=== PATIENT | female | born 1945 | race Caucasian/White ===

== ENCOUNTER → 2024-01-02 09:33 | Day surgery (SDC) | payer MEDICARE, OTHER, SELFPAY ==
[2023-12-30 10:47] VITALS: BMI 28.3
[2024-01-02 10:09] VITALS: BMI 28.3
== END ==
LOC: CATH 09:33
PROVIDERS: ATTENDING PHYSICIAN Internal Medicine; FAMILY PHYSICIAN Family Medicine; OTHER PHYSICIAN Internal Medicine Cardiovascular Disease
DX: I48.19 Other persistent atrial fibrillation (principal); I48.4 Atypical atrial flutter; I10 Essential (primary) hypertension; E78.5 Hyperlipidemia, unspecified; G47.33 Obstructive sleep apnea (adult) (pediatric); C81.90 Hodgkin lymphoma, unspecified, unspecified site; Z85.038 Personal history of other malignant neoplasm of large intestine; Z79.01 Long term (current) use of anticoagulants
CPT/HCPCS: 92960; 93005

== ENCOUNTER 2024-06-04 12:58 | Emergency (ER) | payer MEDICARE, OTHER, SELFPAY ==
[2024-06-04] VITALS (12 sets, daily range): BP systolic 85–127; BP diastolic 47–106; BMI 29.2
[2024-06-04 13:29] LABS: % Basophils 0.8 % (0-2); % Eosinophils 1.9 % (0-6); % Immature Granulocytes 0.4 % (0-0.5); % Monocytes 9.6 % (1.7-9.3); % Neutrophils 64.3 % (42.2-75.2); Absolute Basophils 0.1 10^3/uL (0-0.2); Absolute Eosinophils 0.2 10^3/uL (0-0.7); Absolute Immature Granulocytes 0.1 10^3/uL (0-0.05); Absolute Lymphocytes 2.6 10^3/uL (1.2-3.4); Absolute Monocytes 1.1 10^3/uL (0.1-0.6); Absolute Neutrophils 7.2 10^3/uL (1.4-6.5); Hematocrit 40.6 % (37.0-47.0); Hemoglobin 13.9 g/dL (12.0-16.0); Mean Corp Hgb Conc. 34.2 g/dL (33.0-37.0); Mean Corpuscular Hgb 30.3 pg (27.0-31.0); Mean Corpuscular Volume 88.6 fL (81.0-99.0); Mean Platelet Volume 9.4 fL (7.4-10.4); Nucleated Red Blood Cells % 0 %; Platelet Count 362 10^3/uL (130-400); Red Blood Cell Count 4.58 10^6/uL (4.20-5.40); Red Cell Dist. Width 14.1 % (11.5-14.5); White Blood Cell Count 11.2 10^3/uL (4.8-10.8)
[2024-06-04 13:42] LABS: ALT (SGPT) 24 U/L (0-35); AST (SGOT) 26 U/L (14-36); Albumin 4.2 g/dl (3.5-5.0); Alkaline Phosphatase 81 U/L (38-126); Blood Urea Nitrogen 20 mg/dl (7-17); Calcium 9.6 mg/dl (8.4-10.2); Carbon Dioxide 22 mmol/L (22-30); Chloride 107 mmol/L (98-107); Glucose 115 mg/dl (70-99); Potassium 4.7 mmol/L (3.5-5.1); Sodium 139 mmol/L (135-145); Total Bilirubin 0.6 mg/dl (0.2-1.3); Total Protein 7.6 g/dl (6.3-8.2); eGFR > 60.00
--- NOTE | 2024-06-04 18:18 | ED.GENMED ---
History of Present Illness
General
Chief Complaint: Heart Rate Problem
Source: patient
Time Seen by Provider: 06/04/24 17:03
History of Present Illness
History of Present Illness:
78-year-old female presents to the emergency room complaining of palpitations, shortness of breath and some mild chest discomfort. Patient began experiencing symptoms early this morning and they have continued. She has a history of atrial
fibrillation and atrial flutter. She has had 3 ablations and multiple cardioversions. She does take Eliquis. She has been compliant and has not missed any doses of the past couple weeks. She is known to Dr. Fuentes. Her last cardioversion was
about 6 or 7 months ago.
Past History
Past History
ED Past Medical History: Arrthythmia (Atrial fibrillation) and Cancer (Colon cancer/hodgkins)
ED Past Surgical History: Orthopedic and Other (Mohs procedures, splenectomy in 1972)
Social History
Tobacco: Former smoker
Alcohol: Occasional
Drug: None
Phy Exam
Physical Exam
Physical Exam:
General: Awake, Alert, Oriented X3. No acute distress.
Vitals: Tachycardic
Head: Atraumatic
Eyes: Pupils equal, EOMI
Throat: Airway intact, no exudates. Mallampati score of 1
Neck: Trachea midline
Lungs: Clear and equal b/l
Heart: Regular rate, no murmurs
Abd: Soft, Nontender, No pulsatile mass
Neuro: Nonfocal
Skin: Warm, dry, no rash
Extremities: pulses equal b/l, no edema
Course
Orders/Labs/Results
Orders:
Orders
06/04/24 13:02
Electrocardiogram (*1) Urgent
Reason for Study: Palpitations
06/04/24 13:03
EKG- Treatment ONCE
06/04/24 13:20
Complete Blood Count/With Diff Urgent
Comprehensive Metabolic Panel Urgent
06/04/24 17:57
Propofol [Diprivan] 20 ml .ROUTE .STK-MED
06/04/24 18:02
EKG [Electrocardiogram (*1)] Stat
Reason for Study: Atrial Fibrillation
EKG- Treatment ONCE
Abnormal Lab Results
06/04/24
13:20
WBC 11.2 H 10^3/uL
(4.8-10.8)
Abs Immat Gran (auto) 0.1 H 10^3/uL
(0-0.05)
Absolute Neuts (auto) 7.2 H 10^3/uL
(1.4-6.5)
Absolute Monos (auto) 1.1 H 10^3/uL
(0.1-0.6)
Monocytes % 9.6 H %
(1.7-9.3)
BUN 20 H mg/dl
(7-17)
Glucose 115 H mg/dl
(70-99)
06/04/24 13:20
06/04/24 13:20
Vital Signs
Initial and Last Documented VS:
Initial Vital Signs
Temp Pulse Resp BP Pulse Ox
97.3 F 114 18 115/77 96
06/04/24 13:00 06/04/24 13:00 06/04/24 13:00 06/04/24 13:00 06/04/24 13:00
Last Documented Vital Signs
Temp Pulse Resp BP Pulse Ox
97.7 F 62 18 94/55 96
06/04/24 18:45 06/04/24 18:45 06/04/24 18:45 06/04/24 18:45 06/04/24 18:45
Procedures
Moderate Sedation
Moderate Sedation Start Time(when first medication is given): 18:05
Moderate Sedation Procedure End Time: 18:15
Cardioversion
Indication:: Afib
Synchronized?: Yes
Energy Used: 200 joules
Successful?: Yes
ASA Risk Score: Class II
Any reaction or bad outcome to prior sedation/anesthesia?: No history of a reaction
Sedation level to be attained: moderate
Chart and allergies reviewed: Yes
Patient reassessed prior to sedation: Yes
Time out completed at (validating right patient & procedure): 18:05
History of difficult intubation: No
Airway free of obstruction: Yes
Patient has a gag reflex: Yes
Patient is able to open mouth: Yes
Patient has no dentures: Yes
Patient has no loose teeth: Yes
Medication administered by Provider during Moderate Sedation: IV Propofol (mg)
Total dose administered: 50
Time drug administered: 18:05
Start Time: 18:05
Stop Time: 18:16
MDM/Problems Addressed
Differential Diagnosis Includes:
Paroxysmal atrial fibrillation, atrial flutter, frequent PACs
MDM/Problems Addressed:
Patient presents with palpations, dizziness mild chest discomfort. She is found to be in atrial fibrillation. Labs remarkable. She has been taking her oral anticoagulant, Eliquis, uninterrupted for quite some time and she sure she has not missed
any doses in the past couple weeks. Therefore decision made to proceed with cardioversion. Patient tolerated sedation well. She was converted to sinus rhythm after 1 shock. After sedation she was feeling much better. She was able to ambulate
without difficulty.
Repeat EKG is sinus rhythm at 68. No ischemic changes.
Chronic conditions affecting care: Arrhythmia (Paroxysmal atrial fibrillation)
*Pulse Oximetry
Patient hypoxic: no
*EKG
Interpreted by ED Provider?: Yes
Heart Rate: 104
Rate: tachycardiac
Rhythm: other (Atrial tachycardia)
Slinger: normal axis
Interval: normal interval
QRS Pattern: normal QRS
Ischemia: non-specific ST changes
*Gas Dispenser Interpretation
Rate: tachycardiac
Interpretation: abnormal
Rhythm: a-fib
*Critical Care Note
Total Time (30-74mins, 75-104mins- exclusive of procedures): Not Applicable
ED Attending Note
-
Portions of this chart may have been created with voice recognition software.� Occasional wrong word or��sound alike� substitutions may have occurred due to the inherent limitations of voice recognition software.
Discharge Plan
Departure
Patient Disposition: Home (Routine Discharge)
Date of Disposition: 06/04/24
Time of Disposition: 18:55
Patient with high blood pressure during this ER visit?: No
Condition: Good
Discharge Problem:
Atrial fibrillation with RVR
Instructions: Atrial Fibrillation (DC), Sedation for procedures in adults - Discharge instructions
Prescriptions:
No Action
Eliquis 5 MG tablet
5 mg PO BID
ascorbic acid (vitamin C) [Vitamin C] 1,000 MG tablet
1,000 mg PO BID
sotalol 80 mg tablet
80 mg PO BID Qty: 60 3RF
PreserVision AREDS-2 250-90-40-1 mg Capsule
1 tab PO BID
cholecalciferol (vitamin D3) [Vitamin D3] 125 mcg (5,000 unit) Tablet
250 mcg PO DAILY
Triple Magnesium Complex 400 mg magnesium Capsule
1 mg PO DAILY
garlic extract
1 tab PO DAILY
Referrals:
Deja Narayan MD [Active] -
Lana Brady MD [Family Provider] -
Activity Restrictions/Additional Instructions:
Call Dr. Narayan's office in the morning for a follow up appointment.
Interventions
Interventions:
*Risk Screen - Suicide Last Done: 06/04/24 13:02
*General Assessment Last Done: 06/04/24 13:02
*Neglect/Abuse Screening Last Done: 06/04/24 13:02
*ED- Fall Risk Assessment Last Done: 06/04/24 17:20
*ED COVID-19 Vaccine History Last Done: 06/04/24 13:02
*Nursing Disposition Last Done: 06/04/24 19:17
ED- Pulmonary Assessment Last Done: 06/04/24 17:21
ED- Cardiac Assessment Last Done: 06/04/24 17:17
Discharge Date and Time
Discharge Date/Time: 06/04/24 19:22
Print Language: ROMANIAN
== END 2024-06-04 19:22 | disposition home or self-care (01) ==
LOC: EMR 12:58
PROVIDERS: Emergency Medicine; EMERGENCY PHYSICIAN Emergency Medicine; FAMILY PHYSICIAN Family Medicine
DX: I48.91 Unspecified atrial fibrillation (principal); R06.02 Shortness of breath; R07.89 Other chest pain; I48.92 Unspecified atrial flutter; Z79.01 Long term (current) use of anticoagulants; Z85.71 Personal history of Hodgkin lymphoma; Z85.038 Personal history of other malignant neoplasm of large intestine; Z87.891 Personal history of nicotine dependence
CPT/HCPCS: 92960; 99285; 99152; 80053; 85025; 93005

== ENCOUNTER 2024-06-21 14:47 | Emergency (ER) | payer MEDICARE, OTHER, SELFPAY ==
[2024-06-21] VITALS (16 sets, daily range): BP systolic 92–135; BP diastolic 36–112
[2024-06-21 15:27] LABS: % Basophils 0.7 % (0-2); % Eosinophils 1.5 % (0-6); % Immature Granulocytes 0.4 % (0-0.5); % Lymphocytes 23.1 % (20.5-51.1); % Monocytes 10.1 % (1.7-9.3); % Neutrophils 64.2 % (42.2-75.2); Absolute Basophils 0.1 10^3/uL (0-0.2); Absolute Eosinophils 0.2 10^3/uL (0-0.7); Absolute Lymphocytes 2.5 10^3/uL (1.2-3.4); Absolute Monocytes 1.1 10^3/uL (0.1-0.6); Hemoglobin 12.8 g/dL (12.0-16.0); Mean Corp Hgb Conc. 33.7 g/dL (33.0-37.0); Mean Corpuscular Hgb 30.1 pg (27.0-31.0); Mean Corpuscular Volume 89.4 fL (81.0-99.0); Mean Platelet Volume 9.9 fL (7.4-10.4); Nucleated Red Blood Cells % 0 %; Platelet Count 341 10^3/uL (130-400); Red Blood Cell Count 4.25 10^6/uL (4.20-5.40); Red Cell Dist. Width 14.3 % (11.5-14.5)
[2024-06-21 15:35] LABS: ALT (SGPT) 30 U/L (0-35); AST (SGOT) 32 U/L (14-36); Albumin 4.2 g/dl (3.5-5.0); Alkaline Phosphatase 78 U/L (38-126); Blood Urea Nitrogen 17 mg/dl (7-17); Calcium 9.2 mg/dl (8.4-10.2); Carbon Dioxide 24 mmol/L (22-30); Chloride 110 mmol/L (98-107); Glucose 103 mg/dl (70-99); Potassium 4.6 mmol/L (3.5-5.1); Sodium 138 mmol/L (135-145); Total Bilirubin 0.6 mg/dl (0.2-1.3); Total Protein 7.6 g/dl (6.3-8.2); eGFR > 60.00
[2024-06-21 15:45] LABS: Troponin I < 0.012 ng/ml
--- NOTE | 2024-06-21 19:53 | ED.GENMED ---
History of Present Illness
General
Chief Complaint: Chest Pain
Source: patient
Exam Limitations: none
Time Seen by Provider: 06/21/24 19:41
History of Present Illness
History of Present Illness:
See MDM
Past History
Past History
ED Past Medical History: Arrthythmia (Atrial fibrillation) and Cancer (Colon cancer/hodgkins)
ED Past Surgical History: Orthopedic and Other (Mohs procedures, splenectomy in 1972)
Social History
Tobacco: Former smoker
Alcohol: Occasional
Drug: None
Phy Exam
Physical Exam
Physical Exam:
See MDM
Scores
Heart Score for Chest Pain Patients
STEMI patient?: No
History: Slightly or Non-Suspicious
ECG: Nonspecific Repolarization
Age: >/= 65 years
Risk Factors: 1 or 2 Risk Factors
Troponin: </= Normal Limit
Heart Score for Chest Pain Patients: 4
Heart Score Risk: 20.3% MACE over next 6 weeks
Course
Orders/Labs/Results
Orders:
Orders
06/21/24 14:48
EKG [Electrocardiogram (*1)] Urgent
Reason for Study: Chest Pain
06/21/24 14:49
EKG- Treatment ONCE
06/21/24 15:14
Complete Blood Count/With Diff Urgent
Comprehensive Metabolic Panel Urgent
Troponin I Urgent
06/21/24 20:20
Propofol [Diprivan] 20 ml .ROUTE .STK-MED
06/21/24 20:30
Electrocardiogram (*1) Stat
Reason for Study: Abnormal EKG
EKG- Treatment ONCE
Abnormal Lab Results
06/21/24
15:14
WBC 11.0 H 10^3/uL
(4.8-10.8)
Absolute Neuts (auto) 7.0 H 10^3/uL
(1.4-6.5)
Absolute Monos (auto) 1.1 H 10^3/uL
(0.1-0.6)
Monocytes % 10.1 H %
(1.7-9.3)
Chloride 110 H mmol/L
(98-107)
Glucose 103 H mg/dl
(70-99)
06/21/24 15:14
06/21/24 15:14
Vital Signs
Initial and Last Documented VS:
Initial Vital Signs
Temp Pulse Resp BP Pulse Ox
97.5 F 126 20 121/89 97
06/21/24 14:59 06/21/24 14:59 06/21/24 14:59 06/21/24 14:59 06/21/24 14:59
Last Documented Vital Signs
Temp Pulse Resp BP Pulse Ox
97.5 F 65 16 106/52 97
06/21/24 20:27 06/21/24 20:40 06/21/24 20:40 06/21/24 20:40 06/21/24 20:40
Procedures
Moderate Sedation
ASA Risk Score: Class II
Chart and allergies reviewed: Yes
Consent for anesthesia obtained: Yes
Time out completed (validating right patient & procedure): Yes
Moderate Sedation Start Time(when first medication is given): 20:27
History of difficult intubation: No
Airway free of obstruction: Yes
Patient has a gag reflex: Yes
Patient is able to open mouth: Yes
Patient has no dentures: Yes
Patient has no loose teeth: Yes
Medication administered by Provider during Moderate Sedation: IV Propofol (mg)
Total dose administered: 50
Time drug administered: 20:27
Moderate Sedation Procedure End Time: 20:40
Cardioversion
Indication:: Afib
Performed by:: Maximiliano Woods, DO
Synchronized?: Yes
Energy Used: 150 joules
Number of attempts: 1
Successful?: Yes
Complications: None
ASA Risk Score: Class II
Any reaction or bad outcome to prior sedation/anesthesia?: No history of a reaction
Sedation level to be attained: moderate
Chart and allergies reviewed: Yes
Patient reassessed prior to sedation: Yes
Time out completed at (validating right patient & procedure): 20:25
History of difficult intubation: No
Airway free of obstruction: Yes
Patient has a gag reflex: Yes
Patient is able to open mouth: Yes
Patient has no dentures: Yes
Patient has no loose teeth: Yes
Medication administered by Provider during Moderate Sedation: IV Propofol (mg)
Total dose administered: 50
Time drug administered: 20:27
Start Time: 20:27
Stop Time: 20:40
MDM/Problems Addressed
Differential Diagnosis Includes:
HPI and MDM Narrative:
78-year-old female presenting to the emergency department with recurrent A-fib. Patient states she felt her heart rate racing earlier today. Patient is concerned she is back in A-fib. She was here 3 weeks ago with similar issues requiring
cardioversion. Patient states has been cardioverted about 8 times and has had 3 ablations. She is post to follow-up with her loft patternmaker next week. She claims compliance with Eliquis and her sotalol.
Given that this would be her ninth cardioversion, discussed with patient that I will go over her case with on-call cardiology
Physical exam
General: Well appearing and non-toxic
HEENT: protecting airway
Neck: appears supple
CV: No evidence of cyanosis. Tachycardic and irregular
Resp: No accessory muscle use
Abd: Non-distended
Extremities: No deformities
Neuro: alert
Psych: Normal affect
Skin: Intact
Problems Addressed including Acute and Chronic Conditions affecting care:
1. Recurrent A-fib
Acuity: acute
Prognosis: unstable
Details: Patient comfortable with cardioversion
Updates
Case discussed with cardiology who suggested cardioversion and having her follow-up with her loft patternmaker
Patient tolerated sedation and cardioversion well and is back in sinus rhythm
Differential Diagnosis (but not limited to): A-fib, dehydration, ACS
Testing considered: 2 troponin rule out
Drug therapy (if applicable): OTC meds, please see d/c instruction regarding Rx drugs
Amount and/or Complexity of Data Reviewed
Clinical info obtained from: Patient
External data reviewed: N/A
Labs I independently reviewed (but not limited to): troponin normal
Radiology: N/A
Pulse Ox: not hypoxic
EKG independently reviewed: A-fib with RVR, normal axis, no STEMI
Critical Care Educator: A-fib
Critical Care: N/A
Risk of Complication:
Social Determinants of health: Good social support
Discussed with other providers: Cardiology
Escalation of Care includes Admit/Obs: After being observed in the Emergency Department, pt stable for discharge.
Occasional wrong word or 'sound a like' substitutions may have occurred due to the inherent limitations of voice recognition software. Read the chart carefully and recognize, using context, where substitutions have occurred.
*Critical Care Note
Total Time (30-74mins, 75-104mins- exclusive of procedures): Not Applicable
ED Attending Note
-
Portions of this chart may have been created with voice recognition software.� Occasional wrong word or��sound alike� substitutions may have occurred due to the inherent limitations of voice recognition software.
Discharge Plan
Departure
Patient Disposition: Home (Routine Discharge)
Date of Disposition: 06/21/24
Time of Disposition: 20:45
Patient with high blood pressure during this ER visit?: No
Discharge Problem:
A-fib
Instructions: Atrial fibrillation, MODERATE SEDATION ADULT
Prescriptions:
No Action
Eliquis 5 MG tablet
5 mg PO BID
ascorbic acid (vitamin C) [Vitamin C] 1,000 MG tablet
1,000 mg PO BID
sotalol 80 mg tablet
80 mg PO BID Qty: 60 3RF
PreserVision AREDS-2 250-90-40-1 mg Capsule
1 tab PO BID
cholecalciferol (vitamin D3) [Vitamin D3] 125 mcg (5,000 unit) Tablet
250 mcg PO DAILY
Triple Magnesium Complex 400 mg magnesium Capsule
1 mg PO DAILY
garlic extract
1 tab PO DAILY
Referrals:
Lana Brady MD [Family Provider] -
Activity Restrictions/Additional Instructions:
Please return for any worsening symptoms.
You may return at any time if you have further concerns.
Please follow up with your doctor at the first available appointment, preferably this week.
I spoke to the on-call loft patternmaker Dr. Jacome. He suggested calling the cardiology office and trying to get Dr. Narayan to see you sooner.
Thank you for choosing [facility].
Interventions
Interventions:
*Risk Screen - Suicide Last Done: 06/21/24 14:59
*General Assessment Last Done: 06/21/24 14:59
ED- Cardiac Assessment Last Done: 06/21/24 18:22
Discharge Date and Time
Print Language: POLISH
== END 2024-06-21 21:25 | disposition home or self-care (01) ==
LOC: EMR 14:47
PROVIDERS: Emergency Medicine; EMERGENCY PHYSICIAN Student in an Organized Health Care Education/Training Program; FAMILY PHYSICIAN Family Medicine
DX: I48.91 Unspecified atrial fibrillation (principal); Z85.71 Personal history of Hodgkin lymphoma; Z85.038 Personal history of other malignant neoplasm of large intestine; Z87.891 Personal history of nicotine dependence
CPT/HCPCS: 99152; 99285; 92960; 80053; 84484; 85025; 93005

== ENCOUNTER 2024-07-23 09:05 | Inpatient (IN) | payer MEDICARE, OTHER, SELFPAY ==
[2024-07-23 09:32] VITALS: BMI 27.7
[2024-07-23 09:41] VITALS: BP 96/67
--- NOTE | 2024-07-23 10:07 | W.PN.CD ---
Today's Communication / Plan
-
*THIS IS THE SUMMARY. PLEASE SEE SCANNED H&P*
Await BMP. Dofetilide loading per protocol.
Impression / Plan
-
I/P: 78F with persistent atrial fibrillation (on apixaban, with prior extensive ablations) and Mobitz type I (Wenckebach atrioventricular block), and mild to moderate mitral regurgitation who presents for dofetilide loading.
Outpatient racking machine operator: Dr. Narayan
Paroxysmal atrial fibrillation
- She stopped sotalol 3 days prior to admission as it was not effectively controlling her arrhythmia
- She had extensive ablations in the past, ablation lines intact during following ablation, new areas generating atrial fibrillation.
- BMP pending. EKG pending. Place on telemetry. Initiation of dofetilide per protocol.
- If dofetilide is ineffective consider ablation versus ablate and pace with AZURE ARCHITECT-P and AVJ
- Oral anticoagulation: Apixaban 5 mg twice daily, she denies missed doses and abnormal bleeding
Atypical atrial flutter, S/P ablation
Mitral regurgitation, mild to moderate by TTE 2022
Physical Exam
Vital Signs/Labs
Vital Signs
Temp Pulse Resp BP Pulse Ox
98.2 F 130 16 96/67 97
07/23/24 09:59 07/23/24 09:45 07/23/24 09:59 07/23/24 09:41 07/23/24 09:59
07/22/24 07/23/24 07/24/24
06:59 06:59 06:59
Actual Weight 82.7 kg
Physical Exam
Constitutional: No acute distress and Comfortable
EENT: Anicteric and Moist mucous membranes
Cardiovascular: Rhythm & rate is regular (tachycardia) and S1S2 is normal
Respiratory: Respiratory effort normal and Lungs clear to auscul.
GI: Soft, Distention absent, Flat, Non tender and Normal bowel sounds
Neuro/Psych: AO x 3
Other: Skin (warm and dry)
Data Reviewed
-
Date of Service: July 23, 2024
EKG: Ordered by me
Medical Tests (PFT, Pathology etc): Report Reviewed by me
Labs: Labs Ordered by me
Old Records: Reviewed
[2024-07-23 10:30] VITALS: BMI 27.7
[2024-07-23 11:19] LABS: Blood Urea Nitrogen 17 mg/dl (7-17); Calcium 9.3 mg/dl (8.4-10.2); Carbon Dioxide 24 mmol/L (22-30); Chloride 108 mmol/L (98-107); Estimated Creatinine Clearance 78 ml/min; Glucose 92 mg/dl (70-99); Potassium 4.1 mmol/L (3.5-5.1); Sodium 138 mmol/L (135-145); eGFR > 60.00
[2024-07-23 11:21] VITALS: BP 145/83
--- NOTE | 2024-07-23 11:40 | W.CARD.TIKOS ---
Addendum entered and electronically signed by Deja Narayan MD 07/24/24 09:39:
I returned patient personally. I reviewed blood work, labs, EKG and plan to start patient on dofetilide 500 mcg every 12 hours.
Original Note:
Initiate Tikosyn
-
I verify that the patient has not taken any verapamil (Isoptin/Calan), ketoconazole (Nizoral), cimetidine (Tagamet), trimethoprim (Trimpex), trimethoprim/sulfamethoxazole (Bactrim), megesterol (Megace), prochlorperazine (Compazine),
hydrochlorothiazide (HCTZ), dolutegravir (Tivicay) or any Class I or Class III anti-arrhythmic within the last three days
AND
I verify that the patient has not taken amiodarone within the last THREE months, or that the patient's amiodarone plasma concentration is <0.3 mcg/mL.
Creatinine 0.6 mg/dL (0.6-1.0) 07/23/24 10:21
Estimated Creat Clear 78 ml/min 07/23/24 10:21
I have assessed the baseline QTc interval (using QT for heart rate less than 60 bpm) and deemed the patient is appropriate for Dofetilide therapy. I understand that Tikosyn is contraindicated if the QTc is >440msec (500msec in patients with
ventricular conduction abnormalities).
Baseline QTc (in msec): 440
Ordering Physician: Deja Narayan
[2024-07-23] MEDS: TIKOSYN 500 MCG PO ×2 (11:53→23:00)
--- NOTE | 2024-07-23 12:29 | PTCARENOTE ---
Rec'd Pt as direct admit for Tikosyn loading, A,A+Ox3, denies pain. In A-fib on monitor. New IV started in L forearm, BMP sent. EKG done, VSS. Pt weighed. First dose of Tikosyn given around 1150.
--- NOTE | 2024-07-23 15:16 | CM ---
Reviewed chart. Met with Mrs. Tee to review discharge plans. She states prior to admission she resides with her spouse in an apartment in [facility]. She states has has been there for six years. She states prior to
admission she was independent with ambulation and adls. She states she has a CPAP Machine at home and no other DME in the home. She states her prescription plan is with [employer] and she uses their mail order pharmacy. Will need to send a script for
three days of Dofetilide to the [facility] to go home with her. Will check coverage and co-pay tomorrow. Will check if [facility] has Dofetilide in stock. Medical work-up in progress. The discharge plan is to return home with her spouse
when medically stable.
[2024-07-23 15:32] VITALS: BP 130/84
[2024-07-23 18:48] VITALS: BP 108/62
[2024-07-23] MEDS: VITAMIN C 1000 MG PO (20:55)
[2024-07-23] MEDS: ELIQUIS 5 MG PO (20:55)
[2024-07-23] MEDS: OCUVITE SOFTGEL 1 CAP PO (20:55)
[2024-07-23 23:00] VITALS: BP 134/65
--- NOTE | 2024-07-23 23:28 | PTCARENOTE ---
Assumed care of the pt @ 1900. Pt is AAOx3 A fib on the monitor 115-135 VSS 2 nd Tikosyn dose given @ 2300 EKG due @ 0100. Pt is independent in the room call ha within reach.
[2024-07-24] VITALS (12 sets, daily range): BP systolic 88–140; BP diastolic 68–90; BMI 27.2
[2024-07-24] MEDS: MAGNESIUM OXIDE 500 MG PO (08:39)
[2024-07-24] MEDS: VITAMIN C 1000 MG PO ×2 (08:39→19:56)
[2024-07-24] MEDS: ELIQUIS 5 MG PO ×2 (08:39→19:55)
[2024-07-24] MEDS: VITAMIN D3 (cholecalciferol) 250 MCG PO (08:39)
[2024-07-24] MEDS: OCUVITE SOFTGEL 1 CAP PO ×2 (08:39→19:56)
--- NOTE | 2024-07-24 08:52 | PTCARENOTE ---
Assumed care. Patient returning from the bathroom. HR 130-140's, denies pain or shortness of breath, BP 110/84 left arm, POX 95% on room air. Sitting on side of bed, meds given whole with water, ordering breakfast, call ha in reach
--- NOTE | 2024-07-24 09:39 | W.PN.CD ---
Today's Communication / Plan
-
- Tikosyn reduced to 250 mcg Q12h
- Add Metoprolol
- NPO after midnight for possible DCCV in AM
Impression / Plan
-
I/P: 78F with persistent atrial fibrillation (on apixaban, with prior extensive ablations) and Mobitz type I (Wenckebach atrioventricular block), and mild to moderate mitral regurgitation who presents for dofetilide loading.
Outpatient websphere administrator: Dr. Narayan
Paroxysmal atrial fibrillation
- Off the sotalol 3 days prior to admission as it was not effectively controlling her arrhythmia
- She had extensive ablations in the past, ablation lines intact during following ablation, new areas generating atrial fibrillation.
- now on Tikosyn - QTc is long - may be due to AT and P wave in T wave. Will reduce dose to 250 mcg q12h today
- If dofetilide is ineffective consider ablation versus ablate and pace with STAGE BUILDER-P and AVJ
- Oral anticoagulation: Apixaban 5 mg twice daily, she denies missed doses and abnormal bleeding
- Presented in atrial tachycardia - 130s bpm - rate control with Metoprolol now
- If still in AT in AM, will proceed with cardioversion.
Atrial tachycardia
- Start Metoprolol 50 mg BID
- Continue Tikosyn
Atypical atrial flutter, S/P ablation
Mitral regurgitation, mild to moderate by TTE 2022
Physical Exam
Vital Signs/Labs
Vital Signs
Temp Pulse Resp BP Pulse Ox
97.3 F 136 18 110/84 97
07/24/24 08:25 07/24/24 09:15 07/24/24 08:25 07/24/24 07:59 07/24/24 08:25
07/23/24 07/24/24 07/25/24
06:59 06:59 06:59
Actual Weight 82.7 kg 81.1 kg
07/23/24 10:21
Physical Exam
Constitutional: No acute distress and Comfortable
EENT: Anicteric and Moist mucous membranes
Cardiovascular: Rhythm & rate is regular, Pedal edema is absent and JVD pressure is normal
Respiratory: Respiratory effort normal, Lungs clear to auscul. and Wheeze Absent
GI: Soft, Distention absent and Normal bowel sounds
Neuro/Psych: Alert, Oriented and AO x 3
Data Reviewed
-
Date of Service: July 24, 2024
Medical Decision Making: Reviewed Test Results, Test Interpretation and Review of Case with other Provider
EKG: Tracing Personally Visualized and interpreted
Echo: Report Reviewed by me
Medical Tests (PFT, Pathology etc): Discussed with Patient
Labs: Labs Reviewed by me
Old Records: Reviewed
[2024-07-24] MEDS: TOPROL XL 25 MG PO ×2 (10:21→19:55)
[2024-07-24] MEDS: TIKOSYN 250 MCG PO ×2 (10:21→21:25)
--- NOTE | 2024-07-24 11:32 | CM ---
Reviewed chart. Telephone call to [employer], ([phone]) to check on co-pay for Dofeitilde 500 mcg. Her co-pay would be $37.24 for one month and $111.43 for a 90 day supply via [facility]. Reviewed co-pay with her. She is agreeable to
the co-pay. Telephone call to [facility] to see if they have Dofetilide 500 mcg in stock. They have it in stock. Will need to check if they have Dofetilide 250 mcg in stock. Sherin will need a three script of Dofetilide to go to [facility] so
she can take e three day supply home with her. Prior to admission she resides in an apartment at [facility]. They have been there for six tears. Prior to admission she was independent with ambulation and adls. She has a CPAP
Machine at home and no other DME. She has a prescription plan with [employer] and uses [facility] mail order pharmacy and [facility] when needed. Medical work-up in progress. The discharge plan is to return home with her spouse when medically
stable.
--- NOTE | 2024-07-24 18:00 | PTCARENOTE ---
received patient , patient eating dinner, voices no concerns at this time. I agree with previous assessment.
--- NOTE | 2024-07-24 20:40 | PTCARENOTE ---
Rec'd pt at change of shift. Pt AAO*3, VSS, and Atrial tachycardia on monitor. Pt denies any pain or discomfort. Updated on plan of care and 4th tikosen dose at 21:00. Pt NPO after midnight for possible DCCV. Pt verbalizes understanding and now
resting with call ha in reach. See MAR and flowchart for full pt care and assessment.
[2024-07-25 03:00] VITALS: BP 108/56
[2024-07-25 03:01] VITALS: BP 108/56
--- NOTE | 2024-07-25 04:20 | DOWNTIME ---
Addendum entered and electronically signed by Mikey Butts RN 07/25/24 14:26:
Correction: Downtime was 07/25/2024 from 0100 to 07/25/2024 at 0415
Original Note:
There was a [employer] Client Shaft Repairer Downtime on 07/24/2024 from 0100 to 07/25/2024 at 0415. Downtime documentation of patient's care, including medication administrations, has been reconciled in the electronic record per guidelines. Refer to the
patient's paper chart under the miscellaneous tab to see printed paper medication records and downtime forms.
[2024-07-25 04:51] VITALS: BMI 27.7
--- NOTE | 2024-07-25 04:53 | PTCARENOTE ---
Pt noted to converted to SR at 2:10. SR confirmed with EKG and HR now regular in the 70-80's. Pt BP stable at 108/56. Pt resting with call ha in reach and plan of care ongoing.
--- NOTE | 2024-07-25 08:01 | W.PN.CD ---
Today's Communication / Plan
-
- EKG after 5th dose this AM
- Posible discahrge home today
Impression / Plan
-
I/P: 78F with persistent atrial fibrillation (on apixaban, with prior extensive ablations) and Mobitz type I (Wenckebach atrioventricular block), and mild to moderate mitral regurgitation who presents for dofetilide loading.
Outpatient core sticker: Dr. Narayan
Paroxysmal atrial fibrillation
- Off the sotalol 3 days prior to admission as it was not effectively controlling her arrhythmia
- She had extensive ablations in the past, ablation lines intact during following ablation, new areas generating atrial fibrillation.
- now on Tikosyn - 250 mcg q12h. QTc was long at 500 dose- may be due to AT and P wave in T wave.
- Sinus now - QTc is normal.
- If dofetilide is ineffective consider ablation versus ablate and pace with [facility] [employer]-P and AVJ
- Oral anticoagulation: Apixaban 5 mg twice daily, she denies missed doses and abnormal bleeding
- Presented in atrial tachycardia - 130s bpm - Converted to sinus at 2 am 07/25/24 - on Tikosyn 250 and Metoprolol XL 25 mg BID now
- Dose 5 this AM. With reduced dose and QTc improved, it the QTc is normal then can discharge home after 5th dose.
Atrial tachycardia
- on Metoprolol 25 mg BID - if higher rates noted, can increase to 50 mg BID.
- Continue Tikosyn
Atypical atrial flutter, S/P ablation
Mitral regurgitation, mild to moderate by TTE 2022
Physical Exam
Vital Signs/Labs
Vital Signs
Temp Pulse Resp BP Pulse Ox
98.4 F 76 16 108/56 94
07/25/24 03:00 07/25/24 04:00 07/25/24 03:00 07/25/24 03:01 07/25/24 03:00
06/07/25/24 07/26/24
06:59 06:59 06:59
Actual Weight 82.7 kg 82.5 kg
07/23/24 10:21
Physical Exam
Constitutional: No acute distress and Comfortable
EENT: Anicteric and Moist mucous membranes
Cardiovascular: Rhythm & rate is regular, Pedal edema is absent and JVD pressure is normal
Respiratory: Respiratory effort normal, Lungs clear to auscul. and Wheeze Absent
GI: Soft, Distention absent, Non tender and Normal bowel sounds
Neuro/Psych: Alert, Oriented and AO x 3
Data Reviewed
-
Date of Service: July 25, 2024
Medical Decision Making: Reviewed Test Results, Test Interpretation and Review of Case with other Provider
EKG: Tracing Personally Visualized and interpreted
Echo: Report Reviewed by me
Labs: Labs Reviewed by me
Old Records: Reviewed
[2024-07-25 08:07] VITALS: BP 115/73
[2024-07-25] MEDS: OCUVITE SOFTGEL 1 CAP PO (08:14)
[2024-07-25] MEDS: MAGNESIUM OXIDE 500 MG PO (08:14)
[2024-07-25] MEDS: ELIQUIS 5 MG PO (08:14)
[2024-07-25] MEDS: TIKOSYN 250 MCG PO (08:15)
[2024-07-25] MEDS: TOPROL XL 25 MG PO (08:15)
[2024-07-25] MEDS: VITAMIN C 1000 MG PO (08:16)
[2024-07-25] MEDS: VITAMIN D3 (cholecalciferol) 250 MCG PO (08:16)
--- NOTE | 2024-07-25 10:42 | W.DS.TRANS ---
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
-
Discharge Instructions:
Discharge Diagnosis/Procedures Persistent atrial fibrillation
Dofetilide loading
Diet As tolerated
Activity As tolerated
Driving Restrictions As prior to admission
Bathing Restrictions None
Instructions:
Stand-Alone Forms:
Changes to Home Medications: Yes
Discharge Medications:
DC Medications w/original date entered in [employer]
apixaban 5 mg tablet (Eliquis) 5 mg PO BID Blood clot prevention/tx 10/16/19
ascorbic acid (vitamin C) 1,000 mg tablet (Vitamin C) 1,000 mg PO BID Supplement 10/02/20
cholecalciferol (vitamin D3) 125 mcg (5,000 unit) tablet (Vitamin D3) 250 mcg PO DAILY 08/20/22
vit C 250 mg-vit E 90 mg-zinc 40 mg-copper 1 [id number] capsule (PreserVision AREDS-2) 1 tab PO BID 08/20/22
garlic extract 1 tab PO DAILY 01/02/24
magnesium aspart,citrate,oxide (Triple Magnesium Complex) 1 mg PO DAILY 01/02/24
furosemide 40 mg tablet 40 mg PO DAILY PRN swelling 07/23/24
dofetilide 250 mcg capsule 250 mcg PO Q12 #60 caps 07/25/24
metoprolol succinate 25 mg tablet,extended release 24 hr 25 mg PO BID #60 tabs 07/25/24
Home Medication Changes
now on dofetilide and metoprolol as above
Pending Results: No
--- NOTE | 2024-07-25 11:07 | CM ---
Reviewed chart. Telephone call to [facility] to check if they have Dofetilide 250 mcg in stock [facility] does not have it in stock. If they get the script today it will come in tomorrow. Sent the three day script to [facility] to
give her a three day supply to take home with her. Met with Mrs. Garcia to review discharge plans. Reviewed above with her. Prior to admission she resides with her spouse at [facility]. She resides in the independent section ""of [facility] with her spouse. She has been there for six years. Prior to admission she was independent wt ambulation and adls. She has a CPAP Machine and no other DME in the home. She has a prescription plan with [employer] and uses their mail order
and [facility] when needed. Medical work-up in progress. The discharge plan is to return home with her spouse when medically stable.
--- NOTE | 2024-07-25 11:32 | PTCARENOTE ---
Rec'd Pt at change of shift, A,A+Ox3, she remains in SR. Pt ambulating in room ,offers no complaints. Ekg obtained 2 hrs after 5th dose of Tikosyn given. Pt is written for D/C. D/C instructions reviewed with Pt. She expressed understanding.Pt has 6
doses of Dofetilide(Tikosyn), from our pharmacy, to be sent home with her.
[2024-07-25 12:18] VITALS: BP 120/52
[2024-07-25 12:21] VITALS: BP 120/53
== END 2024-07-25 14:10 | disposition home or self-care (01) | DRG 310 ==
LOC: IVU 09:05
PROVIDERS: Nurse Practitioner Gerontology; ADMITTING PHYSICIAN Internal Medicine Cardiovascular Disease
DX: I48.19 Other persistent atrial fibrillation (principal); Z79.01 Long term (current) use of anticoagulants; I47.19 Other supraventricular tachycardia; I34.0 Nonrheumatic mitral (valve) insufficiency; I48.4 Atypical atrial flutter
CPT/HCPCS: 80048; 93005